=== PATIENT | male | born 1965 | race African-American/Black ===

== ENCOUNTER 2017-10-04 11:29 | Outpatient (CLI) | payer OTHER | END 2017-10-04 11:30 | disposition home or self-care (01) | LOC: BICRAD 11:29 | PROVIDERS: ATTEND Family Medicine | DX: M25.561 Pain in right knee (principal); M17.11 Unilateral primary osteoarthritis, right knee; S82.401S Unspecified fracture of shaft of right fibula, sequela; S72.301S Unspecified fracture of shaft of right femur, sequela ==

== ENCOUNTER 2018-06-07 12:28 | Outpatient (CLI) | payer OTHER ==
--- NOTE | 2018-06-07 14:25 | CT ---
CT CHEST WITHOUT CONTRAST: HISTORY: Lung cancer. Pulmonary nodules. COMPARISON: 01/11/2017 FINDINGS: There are increased in number and size numerous pulmonary nodules. Index lesion in the right lung ap ex, axial image 17, measures 8 mm; previously there was done. Index lesion in the left upper lobe me asures up to 2.3 cm, long axis; previously 1.4 cm. There is a confluence of masses in the left lung base with malignant left pleural effusion and around atelectasis. This is markedly increased from th e comparison examination. New mass in the posterior segment right lower lobe measures 7 mm; previous ly not there. There is a mass in the left upper lobe, on axial image 73, measuring up to 13 mm, previously 6 mm. There continues to be a focal area of thickening, circumferentially, of the trachea, on axial image 2 8, which has not significantly increased on the comparison examination. The thyroid is unremarkable. No pericardial effusion. Multiple calcifications throughout the pancreas are present. No suspicious osteolytic or osteoblasti c lesions. The sternum and manubrium are intact. IMPRESSION: Marked progression of metastatic disease throughout the chest with increase in number and size of pul monary metastatic foci. CODE T POS: TPC
== END 2018-06-07 12:29 | disposition home or self-care (01) ==
LOC: BICCT 12:28
PROVIDERS: ATTEND Family Medicine
DX: Z08 Encounter for follow-up examination after completed treatment for malignant neoplasm (principal); R91.8 Other nonspecific abnormal finding of lung field; C76.1 Malignant neoplasm of thorax; Z85.118 Personal history of other malignant neoplasm of bronchus and lung; Z85.12 Personal history of malignant neoplasm of trachea
CPT/HCPCS: 71250

== ENCOUNTER 2018-12-02 09:22 | Outpatient (CLI) | payer OTHER ==
--- NOTE | 2018-12-02 10:32 | CT ---
CT CHEST WITHOUT CONTRAST CLINICAL INDICATION: Lung cancer, pulmonary nodules. Follow-up evaluation. COMPARISON: 06/07/2018 FINDINGS: Lack of intravenous contrast limits evaluation of mediastinal structures as well as vasculature. Dens e vascular calcifications are again seen in the coronary arteries. No enlarged mediastinal lymph nodes are appreciated. Again noted are numerous bilateral pulmonary nodules majority of which are overall stable in number a nd size in addition to multiple pleural-based nodular densities bilaterally. There is a pleural-based nodule at the right lung base measuring 2 cm and on the prior study measured approximat mina 1.6 cm. There is slight progression in size of the subcentimeter pleural-based nodular densities at the right lung base as well. There has been interval increase in left pleural effusion with small left pleural effusion noted with nodular pleural thickening now present at the posterior left lung base at the level of the pleural fluid. There is a mass in the left lower lobe measuring 4 cm x 3.8 cm. This mass previously measured approximately 2 cm. Additional small nodular densities which are difficult to assess on this exam due to the pleural fluid are again seen at the left lung base. As noted on the prior exam, there does appear to be focal area of thickening, circumferentially, invo lving the trachea which is overall similar to the prior exam with associated calcifications in this region. Thyroid gland has a normal nonenhanced CT appearance. Multiple calcifications are seen in the pancreas likely sequela of prior pancreatitis. The remainder of the upper abdomen demonstrates a grossly normal nonenhanced CT appearance. There is a stable lytic lesion with sclerotic margins in the lateral right seventh rib. This is stabl e from the prior study as well as study in 2016 and does have an overall nonaggressive appearance. No additional lytic or sclerotic osseous lesions are appreciated. IMPRESSION: 1. Multiple bilateral pulmonary nodules suggesting pulmonary metastatic disease. There has been inter prasad enlargement of a left lower lobe mass which measures 4 cm on today's exam and previously measured 2 cm. There is also slight increase in prominence of additional nodular densities left lung base with nodular pleural thickening present on the left posteriorly. 2. Slight interval increase in size of subcentimeter pleural-based nodular densities right lung base. 3. The majority of the previously seen metastatic bilateral pulmonary nodules are stable in size and number.
== END 2018-12-02 09:23 | disposition home or self-care (01) ==
LOC: BICCT 09:22
PROVIDERS: ATTEND Family Medicine
DX: R91.8 Other nonspecific abnormal finding of lung field (principal); Z85.118 Personal history of other malignant neoplasm of bronchus and lung
CPT/HCPCS: 71250

== ENCOUNTER 2019-01-20 14:01 | Outpatient (CLI) | payer OTHER ==
--- NOTE | 2019-01-20 14:31 | ULT ---
Venous duplex sonogram right lower extremity HISTORY: Right leg pain and edema. FINDINGS: The right common femoral vein and greater saphenous junction were evaluated along with the femoral, deep femoral, popliteal, posterior tibial veins. There is good color and spectral Doppler flow and compression. No internal echoes. Within the deep subcutaneous tissues at the posterior calf, an irregular fluid collection measures up to 1.3 cm length by 0.9 cm width by 0.4 cm depth. It remains superficial to the muscle bundle. IMPRESSION: No sonographic evidence of DVT within the right lower extremity. Small fluid collection deep within the subcutaneous tissues at the posterior aspect of the calf in re gion of pain and edema. Possible small abscess.
== END 2019-01-20 14:02 | disposition home or self-care (01) ==
LOC: ULT 14:01
PROVIDERS: ATTEND Family Medicine
DX: M79.604 Pain in right leg (principal); M79.89 Other specified soft tissue disorders; R60.0 Localized edema